=== PATIENT | male | born 1980 ===

== ENCOUNTER 2021-06-16 10:04 | Inpatient (IN) | payer BC ==
[~2021-06-16] VITALS: Ht 182.9 cm; Wt 118.2 kg
[2021-06-16] MEDS ORDERED: DEXAMETHASONE 6 MG TABLET PO SCH (11:15)
[2021-06-16] MEDS ORDERED: mupirocin 2% ointment 22GM TP STA (11:51)
[2021-06-16 12:40] LABS: D-DIMER 15.89 MG/L FEU (0-0.50)
[2021-06-16] MEDS ORDERED: CefTRIAXone 2gm/D5W 50ml BAG 50 ML IV ONE (13:05)
[2021-06-16 13:14] LABS: C-REACTIVE PROTEIN 11.42 MG/DL (0.0-0.5); LACTATE DEHYDROGENASE 963 U/L (85-227)
--- NOTE | 2021-06-16 13:18 | NUR ---
TO CT VIA [facility]
[2021-06-16 13:19] LABS: FERRITIN 1752 NG/ML (26-388)
[2021-06-16 13:21] LABS: BASOPHILS % (AUTO) 0.5 % (0-1); EOSINOPHILS % (AUTO) 0.6 % (0-6); HEMATOCRIT 49.6 % (42.0-52.0); HEMOGLOBIN 17.2 g/dl (14.0-17.9); MEAN CORPUSCULAR HEMOGLOBIN 30.9 PG (27.0-31.0); MEAN CORPUSCULAR HGB CONC 34.7 g/dL (33.0-36.5); MEAN CORPUSCULAR VOLUME 88.9 FL (78-98); MONOCYTES # (AUTO) 0.5 X10'3 (0-0.9); MONOCYTES % (AUTO) 8.3 % (2-12); NEUTROPHILS % (AUTO) 72.6 % (42-75); PLATELET COUNT 259 X10'3 (140-440); RED BLOOD COUNT 5.57 X10'6 (4.70-6.10); RED CELL DISTRIBUTION WIDTH 14.8 % (11.5-14.5); WHITE BLOOD COUNT 5.5 X10'3 (4.5-11.0)
[2021-06-16 13:28] LABS: ALANINE AMINOTRANSFERASE 44 U/L (12-78); ALBUMIN/GLOBULIN RATIO 0.7 (1.1-1.5); ALKALINE PHOSPHATASE 52 IU/L (46-116); ANION GAP 17 (8-16); ASPARTATE AMINO TRANSFERASE 55 U/L (10-37); BILIRUBIN,TOTAL 0.8 MG/DL (0.1-1.0); BLOOD UREA NITROGEN 15 MG/DL (7-18); BUN/CREATININE RATIO 14.3 (5.4-32.0); CALCIUM 8.7 MG/DL (8.5-10.1); CHLORIDE 99 MMOL/L (99-107); CREATININE 1.05 MG/DL (0.60-1.10); GLUCOSE 152 MG/DL (70-104); POTASSIUM 3.5 MMOL/L (3.5-5.1); SODIUM 138 MMOL/L (135-145); TOTAL CARBON DIOXIDE 22.4 MMOL/L (24-32); TOTAL PROTEIN 7.6 G/DL (6.4-8.2); eGFR 77 ML/MIN
[2021-06-16] MEDS: MESSAGE TO NURSING PO SCH (13:30)
[2021-06-16] MEDS ORDERED: METF-950 PO (14:48)
[2021-06-16] MEDS ORDERED: mag hydrox/Alum hydrox/simeth 30ml oral suspension PO PRN (14:50)
[2021-06-16] MEDS ORDERED: HYDROcodone/acetaminophen 5mg/325mg tablet PO PRN (14:50)
[2021-06-16] MEDS ORDERED: ondansetron/PF 4mg/2ml inj IV PRN (14:50)
[2021-06-16] MEDS ORDERED: magnesium hydroxide 30ml (MOM) UD suspension PO PRN (14:50)
[2021-06-16] MEDS ORDERED: HYDROcodone/acetaminophen 10/325mg tab PO PRN (14:50)
[2021-06-16] MEDS ORDERED: normal saline 1000ml 1,000 ML IV SCH (14:50)
[2021-06-16] MEDS ORDERED: morphine 2 MG/ML inj. syringe IV PRN ×2 (14:50)
[2021-06-16] MEDS ORDERED: acetaminophen 325mg tablet PO PRN ×2 (14:50)
[2021-06-16] MEDS ORDERED: MESSAGE TO PHARMACY PO ONE (14:55)
[2021-06-16] MEDS ORDERED: glucagon, human recombinant 1mg kit SUBCUT PRN (14:55)
[2021-06-16] MEDS ORDERED: normal saline 1000ml 1,000 ML IV ONE (14:55)
[2021-06-16] MEDS ORDERED: dextrose ORAL solution 15 GM/59 ML bottle PO PRN ×2 (14:55)
[2021-06-16] MEDS ORDERED: dextrose 50%-water 50ml dispensing syringe IV PRN ×2 (14:55)
[2021-06-16 15:34] LABS: TROPONIN I < 0.04 NG/ML (0.0-0.05)
[2021-06-16 16:32] LABS: PHOSPHORUS 3.9 MG/DL (2.3-4.5)
[2021-06-16] MEDS ORDERED: REMDESIVIR (EUA) 100mg inj. 200 MG in normal saline 100ml IV soln 100 ML IV ONE (17:25)
[2021-06-16] MEDS ORDERED: enoxaparin 30mg/0.3ml syringe SQ SCH (20:00)
[2021-06-16] MEDS: dexamethasone sod phosphate 10mg/ml inj IV SCH (20:43)
[2021-06-16] MEDS: enoxaparin 80mg/0.8ml syringe SUBCUT SCH (20:44)
[2021-06-16] MEDS: enoxaparin 40mg/0.4ml syringe SUBCUT SCH (20:44)
[2021-06-16] MEDS: insulin glargine (Lantus) pen - multi-dose SQ SCH (21:00)
--- NOTE | 2021-06-17 01:11 | NUR ---
patient request for curtain to be drawn so he can sleep, vs wnl, patient has no complaints will cont to monitor.
[2021-06-17] MEDS: MESSAGE TO NURSING PO SCH (08:43)
[2021-06-17 09:12] LABS: BASOPHILS % (AUTO) 0.4 % (0-1); EOSINOPHILS % (AUTO) 0 % (0-6); HEMOGLOBIN 15.3 g/dl (14.0-17.9); MEAN CORPUSCULAR HEMOGLOBIN 30.2 PG (27.0-31.0); MONOCYTES # (AUTO) 0.4 X10'3 (0-0.9); NEUTROPHILS # (AUTO) 2.9 X10'3 (1.8-7.7); WHITE BLOOD COUNT 3.7 X10'3 (4.5-11.0)
[2021-06-17 09:14] LABS: HEMATOCRIT 44.4 % (42.0-52.0); LYMPHOCYTES # (AUTO) 0.4 X10'3 (1.1-4.8); LYMPHOCYTES % (AUTO) 11.9 % (21-51); MEAN CORPUSCULAR HGB CONC 34.3 g/dL (33.0-36.5); MEAN CORPUSCULAR VOLUME 87.9 FL (78-98); MEAN PLATELET VOLUME 8.5 FL (7.4-10.4); MONOCYTES % (AUTO) 9.5 % (2-12); NEUTROPHILS % (AUTO) 78.2 % (42-75); PLATELET COUNT 278 X10'3 (140-440); RED BLOOD COUNT 5.05 X10'6 (4.70-6.10)
[2021-06-17 09:23] LABS: ALBUMIN 2.5 G/DL (3.4-5.0); ANION GAP 11 (8-16); BLOOD UREA NITROGEN 17 MG/DL (7-18); BUN/CREATININE RATIO 19.3 (5.4-32.0); C-REACTIVE PROTEIN 8.86 MG/DL (0.0-0.5); CALCIUM 8.4 MG/DL (8.5-10.1); CHLORIDE 100 MMOL/L (99-107); CREATININE 0.88 MG/DL (0.60-1.10); GLUCOSE 216 MG/DL (70-104); LACTATE DEHYDROGENASE 868 U/L (85-227); POTASSIUM 4.2 MMOL/L (3.5-5.1); SODIUM 136 MMOL/L (135-145); eGFR > 90 ML/MIN
[2021-06-17 09:29] LABS: D-DIMER 12.28 MG/L FEU (0-0.50)
[2021-06-17] MEDS: REMDESIVIR (EUA) 100mg inj. 100 MG in normal saline 100ml IV soln 100 ML IV SCH (09:43)
[2021-06-17] MEDS: dexamethasone sod phosphate 10mg/ml inj IV SCH ×2 (09:45→20:28)
[2021-06-17] MEDS: enoxaparin 80mg/0.8ml syringe SUBCUT SCH ×2 (09:45→20:27)
[2021-06-17] MEDS: enoxaparin 40mg/0.4ml syringe SUBCUT SCH ×2 (09:45→20:27)
--- NOTE | 2021-06-17 14:08 | NUR ---
PT SITTING UP AT BEDSIDE EATING, NO DISTRESS, REPORTS FEELING BETTER
[2021-06-17] MEDS: insulin Lispro (HumaLOG) vial - multi-dose SQ SCH ×2 (14:52→20:25)
--- NOTE | 2021-06-17 15:25 | NUR ---
DR RODRIGUEZ IN TO SEE PT, WANTS RT CALLED FOR HIGH FLOW, OR DECREASE NON REBREATHER. PG'ED NOW
--- NOTE | 2021-06-17 16:36 | NUR ---
RT AT BEDSIDE
--- NOTE | 2021-06-17 17:15 | NUR ---
Incentive Spirometer Teaching given to pt. Return demonstrated with 2500ml volume. pt still on 13L n/c no distress noted.
[2021-06-17] MEDS: insulin glargine (Lantus) pen - multi-dose SQ SCH (21:00)
--- NOTE | 2021-06-17 21:26 | NUR ---
PT REPORTS OVERALL FEELING MUCH BETTER, SPO2 91-93 ON 13 L HIGH FLOW
[2021-06-18] MEDS: dexamethasone sod phosphate 10mg/ml inj IV SCH (08:35)
[2021-06-18] MEDS: enoxaparin 40mg/0.4ml syringe SUBCUT SCH ×2 (08:38→19:58)
[2021-06-18] MEDS: REMDESIVIR (EUA) 100mg inj. 100 MG in normal saline 100ml IV soln 100 ML IV SCH (08:38)
[2021-06-18] MEDS: enoxaparin 80mg/0.8ml syringe SUBCUT SCH ×2 (08:38→20:02)
[2021-06-18 10:12] LABS: BASOPHILS % (AUTO) 0.2 % (0-1); EOSINOPHILS % (AUTO) 0 % (0-6); HEMATOCRIT 41.3 % (42.0-52.0); HEMOGLOBIN 14.4 g/dl (14.0-17.9); LYMPHOCYTES # (AUTO) 0.5 X10'3 (1.1-4.8); LYMPHOCYTES % (AUTO) 9.8 % (21-51); MEAN CORPUSCULAR HEMOGLOBIN 30.5 PG (27.0-31.0); MEAN CORPUSCULAR VOLUME 87.3 FL (78-98); MEAN PLATELET VOLUME 8.3 FL (7.4-10.4); MONOCYTES # (AUTO) 0.6 X10'3 (0-0.9); MONOCYTES % (AUTO) 11.2 % (2-12); NEUTROPHILS # (AUTO) 3.9 X10'3 (1.8-7.7); NEUTROPHILS % (AUTO) 78.8 % (42-75); PLATELET COUNT 304 X10'3 (140-440); RED BLOOD COUNT 4.73 X10'6 (4.70-6.10); RED CELL DISTRIBUTION WIDTH 14.4 % (11.5-14.5); WHITE BLOOD COUNT 4.9 X10'3 (4.5-11.0)
[2021-06-18 10:28] LABS: ALBUMIN 2.3 G/DL (3.4-5.0); ANION GAP 12 (8-16); BLOOD UREA NITROGEN 26 MG/DL (7-18); BUN/CREATININE RATIO 28.9 (5.4-32.0); C-REACTIVE PROTEIN 3.31 MG/DL (0.0-0.5); CHLORIDE 103 MMOL/L (99-107); GLUCOSE 266 MG/DL (70-104); LACTATE DEHYDROGENASE 760 U/L (85-227); SODIUM 139 MMOL/L (135-145); TOTAL CARBON DIOXIDE 24.4 MMOL/L (24-32); eGFR > 90 ML/MIN
[2021-06-18 10:52] LABS: D-DIMER 5.66 MG/L FEU (0-0.50)
[2021-06-18] MEDS: insulin Lispro (HumaLOG) vial - multi-dose SQ SCH ×4 (11:05→22:34)
[2021-06-18] MEDS: methylPREDNISolone sod succ/PF 40mg inj. IV SCH (17:31)
--- NOTE | 2021-06-18 19:00 | NUR ---
PT EATING DINNER, NO DISTRESS
[2021-06-18] MEDS: insulin glargine (Lantus) pen - multi-dose SQ SCH (22:32)
--- NOTE | 2021-06-18 22:37 | NUR ---
PT GIVEN BED BATH, LINEN CHANGE, UP TO BRUSH TEETH, TOLERATED WELL
[2021-06-19] MEDS: methylPREDNISolone sod succ/PF 40mg inj. IV SCH ×3 (00:35→16:58)
[2021-06-19 03:57] LABS: BASOPHILS % (AUTO) 0.1 % (0-1); EOSINOPHILS % (AUTO) 0.1 % (0-6); HEMATOCRIT 39.8 % (42.0-52.0); HEMOGLOBIN 13.8 g/dl (14.0-17.9); LYMPHOCYTES # (AUTO) 0.5 X10'3 (1.1-4.8); LYMPHOCYTES % (AUTO) 10.2 % (21-51); MEAN CORPUSCULAR HEMOGLOBIN 30.7 PG (27.0-31.0); MEAN CORPUSCULAR HGB CONC 34.5 g/dL (33.0-36.5); MEAN CORPUSCULAR VOLUME 88.9 FL (78-98); MEAN PLATELET VOLUME 8.4 FL (7.4-10.4); MONOCYTES # (AUTO) 0.7 X10'3 (0-0.9); MONOCYTES % (AUTO) 13.3 % (2-12); NEUTROPHILS # (AUTO) 3.9 X10'3 (1.8-7.7); NEUTROPHILS % (AUTO) 76.3 % (42-75); PLATELET COUNT 309 X10'3 (140-440); RED BLOOD COUNT 4.48 X10'6 (4.70-6.10); RED CELL DISTRIBUTION WIDTH 14.3 % (11.5-14.5); WHITE BLOOD COUNT 5.1 X10'3 (4.5-11.0)
[2021-06-19 04:30] LABS: D-DIMER 4.27 MG/L FEU (0-0.50)
[2021-06-19 06:59] LABS: ALBUMIN 2.4 G/DL (3.4-5.0); ANION GAP 10 (8-16); BLOOD UREA NITROGEN 30 MG/DL (7-18); BUN/CREATININE RATIO 29.4 (5.4-32.0); C-REACTIVE PROTEIN 1.87 MG/DL (0.0-0.5); CALCIUM 8.1 MG/DL (8.5-10.1); CHLORIDE 107 MMOL/L (99-107); CREATININE 1.02 MG/DL (0.60-1.10); GLUCOSE 205 MG/DL (70-104); LACTATE DEHYDROGENASE 524 U/L (85-227); POTASSIUM 4.1 MMOL/L (3.5-5.1); SODIUM 141 MMOL/L (135-145); TOTAL CARBON DIOXIDE 23.9 MMOL/L (24-32); eGFR 80 ML/MIN
--- NOTE | 2021-06-19 08:07 | NUR ---
called the pharmacy and spoke to daisy pharmacist and sked if remdesivir is ready ? as per daisy its not ready yet but when ever available will bring it to you in er.
--- NOTE | 2021-06-19 08:08 | NUR ---
pt spo2 92 on high flow ,will cont to monitor ,medicate pt when remdesivir is available.
[2021-06-19] MEDS: enoxaparin 40mg/0.4ml syringe SUBCUT SCH ×2 (08:27→21:05)
[2021-06-19] MEDS: REMDESIVIR (EUA) 100mg inj. 100 MG in normal saline 100ml IV soln 100 ML IV SCH (08:28)
[2021-06-19] MEDS: enoxaparin 80mg/0.8ml syringe SUBCUT SCH ×2 (08:28→21:04)
--- NOTE | 2021-06-19 09:47 | NUR ---
pt on level 3 for insulin discussed with lyn khalil that pt b.s is 241 and as per protcol move to next level if the b.s has not droped,as per christian khalil and lyn move to next level which is level 4 per insulin adjustment tools.
[2021-06-19] MEDS: insulin Lispro (HumaLOG) vial - multi-dose SQ SCH ×2 (09:59→15:16)
[2021-06-19] MEDS: insulin glargine (Lantus) pen - multi-dose SQ SCH (21:12)
[2021-06-20] MEDS: methylPREDNISolone sod succ/PF 40mg inj. IV SCH ×3 (02:05→16:46)
[2021-06-20 02:26] LABS: BASOPHILS % (AUTO) 0.5 % (0-1); EOSINOPHILS % (AUTO) 0 % (0-6); HEMATOCRIT 42.2 % (42.0-52.0); HEMOGLOBIN 14.6 g/dl (14.0-17.9); LYMPHOCYTES # (AUTO) 0.6 X10'3 (1.1-4.8); LYMPHOCYTES % (AUTO) 10.7 % (21-51); MEAN CORPUSCULAR HEMOGLOBIN 30.1 PG (27.0-31.0); MEAN CORPUSCULAR HGB CONC 34.6 g/dL (33.0-36.5); MEAN PLATELET VOLUME 8.4 FL (7.4-10.4); MONOCYTES # (AUTO) 0.8 X10'3 (0-0.9); MONOCYTES % (AUTO) 14.1 % (2-12); NEUTROPHILS # (AUTO) 4.2 X10'3 (1.8-7.7); NEUTROPHILS % (AUTO) 74.7 % (42-75); PLATELET COUNT 306 X10'3 (140-440); RED BLOOD COUNT 4.85 X10'6 (4.70-6.10); RED CELL DISTRIBUTION WIDTH 14.3 % (11.5-14.5); WHITE BLOOD COUNT 5.6 X10'3 (4.5-11.0)
[2021-06-20 02:39] LABS: D-DIMER 4.18 MG/L FEU (0-0.50)
[2021-06-20 03:06] LABS: ALBUMIN 2.3 G/DL (3.4-5.0); ANION GAP 9 (8-16); BLOOD UREA NITROGEN 28 MG/DL (7-18); BUN/CREATININE RATIO 28.6 (5.4-32.0); C-REACTIVE PROTEIN 1.01 MG/DL (0.0-0.5); CALCIUM 8.2 MG/DL (8.5-10.1); CHLORIDE 106 MMOL/L (99-107); CREATININE 0.98 MG/DL (0.60-1.10); GLUCOSE 195 MG/DL (70-104); LACTATE DEHYDROGENASE 1116 U/L (85-227); POTASSIUM 4.7 MMOL/L (3.5-5.1); SODIUM 139 MMOL/L (135-145); TOTAL CARBON DIOXIDE 24.4 MMOL/L (24-32); eGFR 83 ML/MIN
--- NOTE | 2021-06-20 07:06 | NUR ---
leodan remains on airborne precaution for Covid.On hiflow sating 90-92% 35L hiflow.
--- NOTE | 2021-06-20 08:32 | NUR ---
STILL MAKING REMDESEVIR PER PHARMACY.
[2021-06-20] MEDS: enoxaparin 80mg/0.8ml syringe SUBCUT SCH ×2 (09:24→20:43)
[2021-06-20] MEDS: enoxaparin 40mg/0.4ml syringe SUBCUT SCH ×2 (09:24→20:44)
--- NOTE | 2021-06-20 09:30 | NUR ---
due meds and breakfast tray given.
--- NOTE | 2021-06-20 10:09 | NUR ---
still awaiting for pharmacy to deliver Remdesevir.
[2021-06-20] MEDS: insulin Lispro (HumaLOG) vial - multi-dose SQ SCH ×2 (10:14→14:11)
[2021-06-20] MEDS: REMDESIVIR (EUA) 100mg inj. 100 MG in normal saline 100ml IV soln 100 ML IV SCH (11:02)
[2021-06-20] MEDS: insulin glargine (Lantus) pen - multi-dose SQ SCH (20:46)
[2021-06-21] MEDS: methylPREDNISolone sod succ/PF 40mg inj. IV SCH ×3 (00:10→16:58)
[2021-06-21 04:07] LABS: BASOPHILS # (AUTO) 0.1 X10'3 (0-0.2); BASOPHILS % (AUTO) 0.8 % (0-1); EOSINOPHILS % (AUTO) 0 % (0-6); HEMATOCRIT 45.6 % (42.0-52.0); HEMOGLOBIN 15.4 g/dl (14.0-17.9); LYMPHOCYTES # (AUTO) 0.7 X10'3 (1.1-4.8); LYMPHOCYTES % (AUTO) 11.2 % (21-51); MEAN CORPUSCULAR HEMOGLOBIN 29.9 PG (27.0-31.0); MEAN CORPUSCULAR HGB CONC 33.9 g/dL (33.0-36.5); MEAN CORPUSCULAR VOLUME 88.2 FL (78-98); MEAN PLATELET VOLUME 8.3 FL (7.4-10.4); MONOCYTES # (AUTO) 0.7 X10'3 (0-0.9); MONOCYTES % (AUTO) 11.1 % (2-12); NEUTROPHILS # (AUTO) 4.9 X10'3 (1.8-7.7); NEUTROPHILS % (AUTO) 76.9 % (42-75); PLATELET COUNT 303 X10'3 (140-440); RED BLOOD COUNT 5.16 X10'6 (4.70-6.10); RED CELL DISTRIBUTION WIDTH 14.3 % (11.5-14.5); WHITE BLOOD COUNT 6.4 X10'3 (4.5-11.0)
[2021-06-21 04:15] LABS: D-DIMER 3.38 MG/L FEU (0-0.50)
[2021-06-21 04:27] LABS: ALBUMIN 2.4 G/DL (3.4-5.0); ANION GAP 7 (8-16); BLOOD UREA NITROGEN 24 MG/DL (7-18); BUN/CREATININE RATIO 24.5 (5.4-32.0); C-REACTIVE PROTEIN 0.51 MG/DL (0.0-0.5); CALCIUM 8.7 MG/DL (8.5-10.1); CHLORIDE 104 MMOL/L (99-107); CREATININE 0.98 MG/DL (0.60-1.10); GLUCOSE 237 MG/DL (70-104); POTASSIUM 5.3 MMOL/L (3.5-5.1); SODIUM 135 MMOL/L (135-145); TOTAL CARBON DIOXIDE 24.2 MMOL/L (24-32); eGFR 83 ML/MIN
[2021-06-21 04:41] LABS: LACTATE DEHYDROGENASE 379 U/L (85-227)
[2021-06-21] MEDS: enoxaparin 80mg/0.8ml syringe SUBCUT SCH ×2 (08:13→20:00)
[2021-06-21] MEDS: enoxaparin 40mg/0.4ml syringe SUBCUT SCH ×2 (08:14→20:00)
--- NOTE | 2021-06-21 08:26 | NUR ---
PT STATES, IM FEELING ALOT BETTER. SKIN CHECKED- SKIN CLEAR AND DRY, NO REDNESS, NO OPEN AREA.
[2021-06-21] MEDS: insulin Lispro (HumaLOG) vial - multi-dose SQ SCH ×3 (12:18→22:38)
--- NOTE | 2021-06-21 14:00 | NUR ---
LARGE BM VIA BSC. VOIDING CLEAR YELLOW URINE
[2021-06-21 22:00] VITALS: BP 121/81
--- NOTE | 2021-06-21 22:25 | NUR ---
Aware admit status says Telemetry unit, stock control supervisor wants pt on ortho floor.
[2021-06-21] MEDS: insulin glargine (Lantus) pen - multi-dose SQ SCH (22:40)
[2021-06-22] MEDS: methylPREDNISolone sod succ/PF 40mg inj. IV SCH ×3 (00:50→20:21)
[2021-06-22 01:54] VITALS: BP 107/68
[2021-06-22 06:09] VITALS: BP 123/78
--- NOTE | 2021-06-22 06:25 | NUR ---
Problems reprioritized. Patient report given, questions answered & plan of care reviewed with JAMIL OCONNOR AND JAMIL GIL.
--- NOTE | 2021-06-22 06:38 | NUR ---
Patient in room ORTHO 4006. I have received report from Gloria NEGRON and had the opportunity to ask questions and assume patient care.
[2021-06-22] MEDS: enoxaparin 80mg/0.8ml syringe SUBCUT SCH ×2 (07:31→20:22)
[2021-06-22] MEDS: enoxaparin 40mg/0.4ml syringe SUBCUT SCH ×2 (07:31→20:22)
[2021-06-22 08:20] LABS: C-REACTIVE PROTEIN 0.14 MG/DL (0.0-0.5); D-DIMER 2.58 MG/L FEU (0-0.50)
[2021-06-22] MEDS: insulin Lispro (HumaLOG) vial - multi-dose SQ SCH ×3 (08:53→18:44)
[2021-06-22 10:00] VITALS: BP 123/28
[2021-06-22 10:29] LABS: ABG BASE EXCESS -3.4 mmol/L (-2.0-2.0); ABG HCO3 19.4 mmol/L (22.0-26.0); ABG OXYGEN SATURATION 91.6 % (94-97); ABG PCO2 (T) 28.3 mmHg (35.0-48.0); ABG PO2 (T) 58.8 mmHg (75.0-100.0); ALLEN'S TEST POSITIVE; FCOHb 0.3 % (0.0-3.9); FLOW 8 L/min; FMetHb 0.4 % (0.0-1.5); PATIENT TEMPERATURE 35.9; TOTAL HEMOGLOBIN 16.9 G/dl (14.0-18.0)
[2021-06-22 14:00] VITALS: BP 125/87
--- NOTE | 2021-06-22 14:43 | NUR ---
DM consult: Pt with A1c 7.0%, well controlled. Pt admit for acute hypoxemic respiratory failure secondary to COVID pneumonia, currently in airborne precautions. Written DM education with RD contact information placed in patient's chart. Pt on a regular diet documented with 100% PO intake. D/w dietary to send double protein TID for satiety and increased protein needs. Noted pt with elevated BG levels ranging 133-336 mg/dL since admit, d/w RN recommendation for diet change to CHO controlled with MD approval to assist with blood sugar control. [facility] 06/21. Will continue to follow and monitor need for further nutrition intervention. Recommendations: 1) Diet change to CHO controlled, d/w RN 2) Double eggs WB, double meat BIDLD 3) Bowel care per rx 4) Weekly scaled weights Addendum: 06/22/21 at [address] Amended: Links added.
[2021-06-22 17:44] VITALS: BP 129/93
--- NOTE | 2021-06-22 18:13 | NUR ---
Problems reprioritized. Patient report given, questions answered & plan of care reviewed with vero khalil.
[2021-06-22] MEDS: insulin glargine (Lantus) pen - multi-dose SQ SCH (20:35)
[2021-06-22 22:00] VITALS: BP 109/74
[2021-06-23 02:00] VITALS: BP 119/69
[2021-06-23 05:32] VITALS: BP 116/79
--- NOTE | 2021-06-23 06:07 | NUR ---
Problems reprioritized. Patient report given, questions answered & plan of care reviewed with JAMIL Smith.
--- NOTE | 2021-06-23 06:14 | NUR ---
Patient in room ORTHO 4006. I have received report from Graciela NEGRON and had the opportunity to ask questions and assume patient care.
[2021-06-23 06:43] LABS: BASOPHILS % (AUTO) 0.1 % (0-1); EOSINOPHILS % (AUTO) 0 % (0-6); HEMOGLOBIN 16.2 g/dl (14.0-17.9); LYMPHOCYTES # (AUTO) 1.5 X10'3 (1.1-4.8); LYMPHOCYTES % (AUTO) 17.7 % (21-51); MEAN CORPUSCULAR HEMOGLOBIN 30.2 PG (27.0-31.0); MEAN CORPUSCULAR HGB CONC 34.4 g/dL (33.0-36.5); MEAN CORPUSCULAR VOLUME 87.9 FL (78-98); MEAN PLATELET VOLUME 8.2 FL (7.4-10.4); MONOCYTES # (AUTO) 0.8 X10'3 (0-0.9); MONOCYTES % (AUTO) 9.4 % (2-12); NEUTROPHILS # (AUTO) 6.1 X10'3 (1.8-7.7); NEUTROPHILS % (AUTO) 72.8 % (42-75); PLATELET COUNT 281 X10'3 (140-440); RED BLOOD COUNT 5.35 X10'6 (4.70-6.10); RED CELL DISTRIBUTION WIDTH 14.6 % (11.5-14.5); WHITE BLOOD COUNT 8.5 X10'3 (4.5-11.0)
[2021-06-23 06:45] LABS: D-DIMER 2.41 MG/L FEU (0-0.50)
[2021-06-23 06:57] LABS: ALBUMIN 2.5 G/DL (3.4-5.0); ANION GAP 8 (8-16); BLOOD UREA NITROGEN 29 MG/DL (7-18); BUN/CREATININE RATIO 29.3 (5.4-32.0); C-REACTIVE PROTEIN 0.07 MG/DL (0.0-0.5); CALCIUM 8.3 MG/DL (8.5-10.1); CHLORIDE 106 MMOL/L (99-107); CREATININE 0.99 MG/DL (0.60-1.10); GLUCOSE 165 MG/DL (70-104); LACTATE DEHYDROGENASE 316 U/L (85-227); SODIUM 138 MMOL/L (135-145); TOTAL CARBON DIOXIDE 24.4 MMOL/L (24-32); eGFR 83 ML/MIN
[2021-06-23] MEDS: enoxaparin 40mg/0.4ml syringe SUBCUT SCH ×2 (07:29→20:00)
[2021-06-23] MEDS: enoxaparin 80mg/0.8ml syringe SUBCUT SCH ×2 (07:29→19:59)
[2021-06-23] MEDS: methylPREDNISolone sod succ/PF 40mg inj. IV SCH ×2 (07:29→19:59)
--- NOTE | 2021-06-23 07:55 | NUR ---
Titrated patients oxygen down from 12 liters to 10. Sp02 93%.
--- NOTE | 2021-06-23 08:01 | NUR ---
Call placed to interventional radiology technologist regarding continuous pulse ox as this patient is on high flow oxygen, they stated they have none available as they are all in use by other covid patients.
[2021-06-23] MEDS: insulin Lispro (HumaLOG) vial - multi-dose SQ SCH ×3 (08:23→18:55)
--- NOTE | 2021-06-23 08:36 | NUR ---
Patient has been ambulating to the bathroom with no oxygen and is not able to have a continuous pulse ox as they are all currently in use. Got patient 2 sets of extension tubing so his oxygen could reach the restroom as he is on 10 liters at this moment. Advised him to call when he got back to bed so I could check his oxygen as he is exerting himself.
--- NOTE | 2021-06-23 08:45 | NUR ---
Patient pressed call light when back from the bathroom, sp02 after exertion was 93% on 10 liters of oxygen.
[2021-06-23 10:05] VITALS: BP 120/84
--- NOTE | 2021-06-23 12:31 | NUR ---
Sp02 is 97% on 10 liters of oxygen at this time, in no respiratory distress. Oxygen turned down to 8 liters.
--- NOTE | 2021-06-23 14:17 | NUR ---
Sp02 96% on 8 liters, turned down to 7 liters. When checking patients oxygen it too was after he had ambulated to the rest room.
[2021-06-23 15:19] VITALS: BP 123/85
[2021-06-23 17:34] VITALS: BP 101/63
--- NOTE | 2021-06-23 17:35 | NUR ---
Sp02 95% on 6.5 liters, titrated down to 5.
--- NOTE | 2021-06-23 18:24 | NUR ---
Patient in room ORTHO 4006. I have received report from JAMIL Smith and had the opportunity to ask questions and assume patient care.
--- NOTE | 2021-06-23 18:26 | NUR ---
Problems reprioritized. Patient report given, questions answered & plan of care reviewed with Latha NEGRON.
[2021-06-23] MEDS: insulin glargine (Lantus) pen - multi-dose SQ SCH (21:12)
[2021-06-23 22:00] VITALS: BP 131/79
[2021-06-24 02:00] VITALS: BP 114/82
--- NOTE | 2021-06-24 06:09 | NUR ---
Patient in room ORTHO 4006. I have received report from Latha NEGRON and had the opportunity to ask questions and assume patient care.
--- NOTE | 2021-06-24 06:16 | NUR ---
Problems reprioritized. Patient report given, questions answered & plan of care reviewed with JAMIL Smith.
[2021-06-24 06:19] VITALS: BP 120/74
[2021-06-24] MEDS: methylPREDNISolone sod succ/PF 40mg inj. IV SCH ×2 (06:53→20:21)
[2021-06-24] MEDS: enoxaparin 40mg/0.4ml syringe SUBCUT SCH ×2 (06:53→20:21)
[2021-06-24] MEDS: enoxaparin 80mg/0.8ml syringe SUBCUT SCH ×2 (06:53→20:21)
--- NOTE | 2021-06-24 08:01 | NUR ---
PAGER ID: [phone] MESSAGE: [id number] Hugo, do you want AM labs? [email or web address] [phone]
[2021-06-24] MEDS: insulin Lispro (HumaLOG) vial - multi-dose SQ SCH ×3 (09:03→18:52)
[2021-06-24 10:05] LABS: BASOPHILS % (AUTO) 0.1 % (0-1); EOSINOPHILS % (AUTO) 0.1 % (0-6); HEMATOCRIT 46.8 % (42.0-52.0); HEMOGLOBIN 15.8 g/dl (14.0-17.9); LYMPHOCYTES # (AUTO) 1.1 X10'3 (1.1-4.8); LYMPHOCYTES % (AUTO) 14.3 % (21-51); MEAN CORPUSCULAR HGB CONC 33.7 g/dL (33.0-36.5); MEAN CORPUSCULAR VOLUME 89.1 FL (78-98); MEAN PLATELET VOLUME 8.6 FL (7.4-10.4); MONOCYTES # (AUTO) 0.7 X10'3 (0-0.9); MONOCYTES % (AUTO) 9.5 % (2-12); NEUTROPHILS # (AUTO) 5.6 X10'3 (1.8-7.7); PLATELET COUNT 236 X10'3 (140-440); RED BLOOD COUNT 5.25 X10'6 (4.70-6.10); RED CELL DISTRIBUTION WIDTH 14.4 % (11.5-14.5); WHITE BLOOD COUNT 7.4 X10'3 (4.5-11.0)
[2021-06-24 10:10] LABS: D-DIMER 2.29 MG/L FEU (0-0.50)
[2021-06-24 10:14] LABS: ALBUMIN 2.5 G/DL (3.4-5.0); ANION GAP 4 (8-16); BLOOD UREA NITROGEN 30 MG/DL (7-18); BUN/CREATININE RATIO 29.4 (5.4-32.0); CALCIUM 8.3 MG/DL (8.5-10.1); CHLORIDE 103 MMOL/L (99-107); CREATININE 1.02 MG/DL (0.60-1.10); GLUCOSE 286 MG/DL (70-104); LACTATE DEHYDROGENASE 229 U/L (85-227); POTASSIUM 4.8 MMOL/L (3.5-5.1); SODIUM 136 MMOL/L (135-145); TOTAL CARBON DIOXIDE 29.4 MMOL/L (24-32); eGFR 80 ML/MIN
--- NOTE | 2021-06-24 10:23 | NUR ---
Patients girlfriend is to bring in a change of clothes and then the patient would like to take a shower. Advised to have her leave the clothes with security at the front desk monitor and we can get them for him downstairs.
[2021-06-24 10:24] LABS: C-REACTIVE PROTEIN < 0.05 MG/DL (0.0-0.5)
[2021-06-24 10:46] VITALS: BP 134/81
[2021-06-24 18:00] VITALS: BP 132/91
--- NOTE | 2021-06-24 18:10 | NUR ---
Patient in room ORTHO 4006. I have received report from JAMIL Smith and had the opportunity to ask questions and assume patient care.
--- NOTE | 2021-06-24 18:22 | NUR ---
Problems reprioritized. Patient report given, questions answered & plan of care reviewed with Latha NEGRON.
--- NOTE | 2021-06-24 21:40 | NUR ---
Dr. Lyons was notified regarding pt. hs blood sugar of 79.She gave me a order to administer 1/2 dose from the night before which was 14 units.Pt. melvin santoro ,we will continue with pt. care.
[2021-06-24] MEDS: insulin glargine (Lantus) pen - multi-dose SQ SCH (21:49)
[2021-06-24 22:00] VITALS: BP 116/82
[2021-06-25 02:00] VITALS: BP 122/69
--- NOTE | 2021-06-25 06:09 | NUR ---
Problems reprioritized. Patient report given, questions answered & plan of care reviewed with JAMIL Smith.
[2021-06-25 06:10] VITALS: BP 130/85
--- NOTE | 2021-06-25 06:10 | NUR ---
Patient in room ORTHO 4006. I have received report from Latha NEGRNO and had the opportunity to ask questions and assume patient care.
[2021-06-25] MEDS: enoxaparin 80mg/0.8ml syringe SUBCUT SCH ×2 (07:21→20:51)
[2021-06-25] MEDS: methylPREDNISolone sod succ/PF 40mg inj. IV SCH ×2 (07:21→20:50)
[2021-06-25] MEDS: enoxaparin 40mg/0.4ml syringe SUBCUT SCH ×2 (07:21→20:51)
[2021-06-25] MEDS: insulin Lispro (HumaLOG) vial - multi-dose SQ SCH ×4 (08:39→21:55)
--- NOTE | 2021-06-25 09:19 | NUR ---
Paged RT in regards to patients ABG that Dr. Jalloh ordered.
[2021-06-25 09:48] LABS: ABG BASE EXCESS -2.5 mmol/L (-2.0-2.0); ABG HCO3 20.6 mmol/L (22.0-26.0); ABG OXYGEN SATURATION 91.3 % (94-97); ABG PCO2 (T) 31.5 mmHg (35.0-48.0); ABG PO2 (T) 61.3 mmHg (75.0-100.0); ALLEN'S TEST POSITIVE; FCOHb 0.3 % (0.0-3.9); FLOW 4 L/min; FMetHb 0.3 % (0.0-1.5); FO2Hb 90.8 % (94-97); TOTAL HEMOGLOBIN 15.9 G/dl (14.0-18.0)
[2021-06-25 10:24] VITALS: BP 123/75
[2021-06-25 10:37] LABS: BASOPHILS % (AUTO) 0.3 % (0-1); EOSINOPHILS % (AUTO) 0 % (0-6); HEMATOCRIT 45.9 % (42.0-52.0); HEMOGLOBIN 15.8 g/dl (14.0-17.9); LYMPHOCYTES % (AUTO) 13.9 % (21-51); MEAN CORPUSCULAR HEMOGLOBIN 30.2 PG (27.0-31.0); MEAN CORPUSCULAR HGB CONC 34.3 g/dL (33.0-36.5); MEAN CORPUSCULAR VOLUME 88.1 FL (78-98); MEAN PLATELET VOLUME 8.9 FL (7.4-10.4); MONOCYTES # (AUTO) 0.5 X10'3 (0-0.9); MONOCYTES % (AUTO) 6.5 % (2-12); NEUTROPHILS # (AUTO) 5.6 X10'3 (1.8-7.7); NEUTROPHILS % (AUTO) 79.3 % (42-75); PLATELET COUNT 218 X10'3 (140-440); RED BLOOD COUNT 5.21 X10'6 (4.70-6.10); RED CELL DISTRIBUTION WIDTH 14.5 % (11.5-14.5); WHITE BLOOD COUNT 7.1 X10'3 (4.5-11.0)
[2021-06-25 10:40] LABS: D-DIMER 1.42 MG/L FEU (0-0.50)
[2021-06-25 10:45] LABS: ALBUMIN 2.5 G/DL (3.4-5.0); ANION GAP 6 (8-16); BLOOD UREA NITROGEN 29 MG/DL (7-18); BUN/CREATININE RATIO 33.3 (5.4-32.0); C-REACTIVE PROTEIN < 0.05 MG/DL (0.0-0.5); CALCIUM 8.3 MG/DL (8.5-10.1); CHLORIDE 104 MMOL/L (99-107); CREATININE 0.87 MG/DL (0.60-1.10); GLUCOSE 238 MG/DL (70-104); LACTATE DEHYDROGENASE 286 U/L (85-227); POTASSIUM 4.3 MMOL/L (3.5-5.1); SODIUM 138 MMOL/L (135-145); TOTAL CARBON DIOXIDE 27.9 MMOL/L (24-32); eGFR > 90 ML/MIN
--- NOTE | 2021-06-25 13:06 | NUR ---
Per Dr. Jalloh she is aware of patient hypoxemia on his blood gas with a P02 of 61. Respiratory wanted to increase the patient back to 5 liters due to this although his SP02 is fine on 3.5. Received call from Dr. Jalloh that by the end of the day the patient needs to be titrated down to 4 liters on the nasal cannula. Advised that respiratory was the one to turn him back up due to his hypoxemia on his blood gases.
--- NOTE | 2021-06-25 18:27 | NUR ---
Problems reprioritized. Patient report given, questions answered & plan of care reviewed with Abi NEGRON.
[2021-06-25] MEDS: insulin glargine (Lantus) pen - multi-dose SQ SCH (21:53)
[2021-06-25 22:00] VITALS: BP 132/80
[2021-06-26 06:00] VITALS: BP 123/84
--- NOTE | 2021-06-26 06:49 | NUR ---
Patient in room ORTHO 4006. I have received report from Abi NEGRON and had the opportunity to ask questions and assume patient care.
[2021-06-26] MEDS: methylPREDNISolone sod succ/PF 40mg inj. IV SCH (07:45)
[2021-06-26] MEDS: enoxaparin 80mg/0.8ml syringe SUBCUT SCH (07:46)
[2021-06-26] MEDS: enoxaparin 40mg/0.4ml syringe SUBCUT SCH (07:46)
[2021-06-26] MEDS: insulin Lispro (HumaLOG) vial - multi-dose SQ SCH ×2 (08:48→13:03)
--- NOTE | 2021-06-26 09:24 | NUR ---
PAGER ID: [phone] MESSAGE: [phone] Hugo, no AM labs ordered. [email or web address] [phone]
--- NOTE | 2021-06-26 09:53 | NUR ---
O2 Sat at rest on room air:__87_% If below 89%: Recovery O2 Sat at rest on __3_LPM:__93_%:___% via (mask/nasal cannula, etc..) No further documentation is necessary. If O2 Sat did not drop below 89% on room air,ambulate patient on room air. O2 Sat while ambulating on room air:___% Recovery O2 Sat while ambulating on ___LPM:___% No further documentation is necessary. If patient does not drop below 89% while ambulating, he/she does not qualify for home O2. Addendum: 06/26/21 at 0954 by Sarah Lee RN via nasal cannula
[2021-06-26] MEDS ORDERED: PRED10TA23 PO ×2 (10:04→11:18)
[2021-06-26] MEDS ORDERED: METF-950 PO (10:06)
[2021-06-26 10:52] VITALS: BP 130/88
--- NOTE | 2021-06-26 11:03 | NUR ---
Received call from Dr. Jalloh that we are going to do a repeat CTA of his chest to rule out pulmonary embolism as his first CTA could not rule it out. Told patient this and his other discharge plans including his metformin increasing and that we are waiting on oxygen to arrive. Patient agreeable to all of these things and voices understanding.
[2021-06-26] MEDS ORDERED: ASPI-1265 PO (11:18)
[2021-06-26] MEDS ORDERED: iohexol 350MG/ML 100ml bottle IV ONE (11:29)
--- NOTE | 2021-06-26 12:28 | NUR ---
PAGER ID: [phone] MESSAGE: [phone] report is back, no pulmonary embolism. [email or web address] [phone]
--- NOTE | 2021-06-26 13:13 | NUR ---
In to give patient discharge instructions while we wait for oxygen to arrive for home. Patient understands all instructions given to him and stated he is going to get a pulse ox for at home to monitor his oxygen. Advised patient to check blood sugars at least 2 times a day while on the steroids. Also advised patient to take things easy at home for about a week and follow up with his primary care in regards of when to return to work as he works for [employer].
--- NOTE | 2021-06-26 14:32 | NUR ---
Patient was discharged to home via private vehicle with girlfriend. Went over all discharge instructions with the patient and he verbalized understanding. 20 gauge PIV removed from his right ac with the cannula intact, no complications. Prescriptions were called in to [facility] [address].
[2021-06-27] MEDS ORDERED: predniSONE 20 mg tablet PO SCH (08:00)
== END 2021-06-26 14:05 | disposition home or self-care (01) | DRG 177 ==
LOC: ER 10:05 → ED HOLD 14:54 → ORTHO 4S 06-21 22:00
PROVIDERS: ADMIT Internal Medicine; ATTEND Internal Medicine
PROC: XW033E5 Introduction of Remdesivir Anti-infective into Peripheral Vein, Percutaneous Approach, New Technology Group 5 (ICD-10-PCS; principal; 2021-06-16)
PROC: B32T1ZZ Computerized Tomography (CT Scan) of Left Pulmonary Artery using Low Osmolar Contrast (ICD-10-PCS; 2021-06-16)
PROC: B32S1ZZ Computerized Tomography (CT Scan) of Right Pulmonary Artery using Low Osmolar Contrast (ICD-10-PCS; 2021-06-16)
PROC: 5A0955A Assistance with Respiratory Ventilation, Greater than 96 Consecutive Hours, High Flow/Velocity Cannula (ICD-10-PCS; 2021-06-18)
DX: U07.1 COVID-19 (principal); J12.82 Pneumonia due to coronavirus disease 2019; J96.01 Acute respiratory failure with hypoxia; Z83.3 Family history of diabetes mellitus; E66.9 Obesity, unspecified; Z68.35 Body mass index [BMI] 35.0-35.9, adult; K59.00 Constipation, unspecified; E87.5 Hyperkalemia
CPT/HCPCS: 36415; 36600; 71045; 71275; 80048; 80053; 82728; 82803; 82948; 83036; 83605; 83615; 83880; 84100; 84145; 84484; 85018; 85025; 85379; 85384; 86140; 87081; 94760; 96365; 99285; G0378; J0696; J1100; J1650; J1815; J2920; J7030; J8540; Q9967